=== PATIENT | male | born 1985 | race Two or more races ===

== ENCOUNTER 2016-07-18 22:22 | Emergency (ER) | payer MEDICARE, MEDICAID ==
[~2016-07-18] VITALS: Ht 165.1 cm; Wt 81.6 kg
--- NOTE | 2016-07-18 22:55 | NUR ---
TO BED 2 BIB PARAMEDICS C/O L FOREARM INTENTIONAL SUPERFICIAL LACERATION. PT DENIES SI OR HI. PT STATES "I JUST WANTED TO FEEL ALIVE". PT AAOX4 NO ACUTE DISTRESS NOTED, RESP EVEN AND UNLABORED. URINE SAMPLE COLLECTED AND SENT TO LAB. PT CALM AND COOPERATIVE AT THIS TIME.
--- NOTE | 2016-07-18 23:23 | NUR ---
BLOOD DRAWN BY PIE BAKER.
[2016-07-18 23:36] LABS: BASOPHILS % (AUTO) 0.5 % (0.0-2.0); EOSINOPHILS # (AUTO) 0.1 /CMM (0.0-0.7); EOSINOPHILS % (AUTO) 0.9 % (0.0-6.0); HEMATOCRIT 42 % (39-51); HEMOGLOBIN 14.4 g/dL (13.5-17.5); LYMPHOCYTES # (AUTO) 1.6 /CMM (0.8-4.8); LYMPHOCYTES % (AUTO) 21.4 % (20.0-44.0); MEAN CORPUSCULAR HEMOGLOBIN 30 PG (26.0-33.0); MEAN CORPUSCULAR HGB CONC 34 g/dl (31.0-36.0); MEAN CORPUSCULAR VOLUME 90 fL (80-96); MONOCYTES # (AUTO) 0.7 /CMM (0.1-1.30); MONOCYTES % (AUTO) 9.3 % (2.0-12.0); NEUTROPHILS # (AUTO) 5.2 /CMM (1.8-8.9); NEUTROPHILS % (AUTO) 67.9 % (43.0-81.0); PLATELET COUNT (AUTO) 271 /CMM (150-450); RDW COEFFICIENT OF VARIATION 13.2 (11.5-15.0); RED BLOOD CELL COUNT(AUTO) 4.72 MIL/uL (4.5-6.0); WHITE BLOOD COUNT (AUTO) 7.6 K/uL (4.3-11.0)
[2016-07-18 23:44] LABS: CALCIUM, SERUM 8.2 mg/dL (8.5-10.1); CARBON DIOXIDE 28 mmol/L (21-32); CHLORIDE 107 mmol/L (98-107); CREATININE 0.9 mg/dL (0.6-1.3); GFR 98 mL/min (>60); GLUCOSE 97 mg/dL (74-106); POTASSIUM 3.8 mmol/L (3.5-5.1); SODIUM SERUM 140 mmol/L (136-145); UREA NITROGEN, BLOOD 15 mg/dL (7-18)
[2016-07-18 23:49] LABS: ALANINE AMINOTRANSFERASE 28 U/L (12-78); ALBUMIN 3.6 g/dL (3.4-5.0); ALKALINE PHOSPHATASE 101 U/L (46-116); ASPARTATE AMINOTRANSFERASE 13 U/L (15-37); BILIRUBIN,DIRECT 0.1 mg/dL (0.0-0.2); BILIRUBIN,TOTAL 0.2 mg/dL (0.2-1.0)
[2016-07-18 23:51] LABS: ACETAMINOPHEN 0 ug/ml (10-30); ALCOHOL, BLOOD < 3 mg/dL (0-0); SALICYLATE 1.6 mg/dL (2.8-20.0)
--- NOTE | 2016-07-19 00:01 | NUR ---
PT AT BEDSIDE.
[2016-07-19 00:04] LABS: APPEARANCE,URINE CLEAR (CLEAR); BILIRUBIN,URINE NEGATIVE (NEGATIVE); BLOOD, URINE 2+ Ery/uL (NEGATIVE); COLOR,URINE YELLOW (YELLOW); KETONES,URINE NEGATIVE (NEGATIVE); LEUKOCYTE ESTERASE ,URINE NEGATIVE (NEGATIVE); NITRITE, URINE NEGATIVE (NEGATIVE); PH,URINE 6.5 (5.0-8.0); PROTEIN,URINE NEGATIVE (NEGATIVE); UGLUCOSE NEGATIVE (NEGATIVE); UROBILINOGEN,URINE 0.2 EU/dL (0.2)
[2016-07-19 00:05] LABS: CANNABINOID, URINE NEGATIVE (NEGATIVE); PHENCYCLIDINE SCREEN,URINE NEGATIVE (NEGATIVE)
[2016-07-19 00:26] LABS: ADD URINE CULTURE NO; BACTERIA,URINE None seen /HPF (None Seen); RBC,URINE 0-2 /HPF (0-2); SQUAMOUS EPITHELIAL CELL,UR Few /HPF (None Seen); WBC,URINE 0-2 /HPF (0-3)
--- NOTE | 2016-07-19 00:43 | NUR ---
MORA PERAZAW AT BEDSIDE TO CARITO LÓPEZ.
--- NOTE | 2016-07-19 01:03 | NUR ---
PT CLEARED FOR PSYCH PER ART MIGUEL PERAZAW.
--- NOTE | 2016-07-19 01:09 | NUR ---
Patient discharged to home in stable condition. Written and verbal after care instructions given. Patient verbalizes understanding of instruction. ambulatory with a steady gait. pt remains to deny hi or hi. pt at bedside to take pt home.
[2016-07-19 01:11] VITALS: BP 119/64
== END 2016-07-19 01:11 | disposition home or self-care (01) ==
LOC: ER 22:24
DX: F32.9 Major depressive disorder, single episode, unspecified (principal); F31.9 Bipolar disorder, unspecified; Z88.0 Allergy status to penicillin
CPT/HCPCS: 36415; 80048-TC; 80076-TC; 80305; 81000-TC; 85025-TC; A4606; A6402; G0480; G6039-TC; Z7610

== ENCOUNTER 2016-08-01 17:56 | Emergency (ER) | payer OTHER, MEDICAID ==
[~2016-08-01] VITALS: Ht 165.1 cm; Wt 79.4 kg
[2016-08-01] MEDS ORDERED: IV NS 0.9% 500 ML BAG IV ONE (18:30)
[2016-08-01] MEDS ORDERED: IV SET PRIMARY 1 EA INFUS.SET MC ONE (18:38)
[2016-08-01] MEDS ORDERED: IV NS 0.9% 500 ML IV ONE (18:38)
[2016-08-01 18:43] LABS: BASOPHILS % (AUTO) 0.5 % (0.0-2.0); DIFF TOTAL % 100 %; EOSINOPHILS # (AUTO) 0.1 /CMM (0.0-0.7); EOSINOPHILS % (AUTO) 1.2 % (0.0-6.0); HEMATOCRIT 46 % (39-51); HEMOGLOBIN 15.1 g/dL (13.5-17.5); LYMPHOCYTES % (AUTO) 26.4 % (20.0-44.0); MEAN CORPUSCULAR HEMOGLOBIN 30 PG (26.0-33.0); MEAN CORPUSCULAR HGB CONC 33 g/dl (31.0-36.0); MEAN CORPUSCULAR VOLUME 90 fL (80-96); MONOCYTES # (AUTO) 0.6 /CMM (0.1-1.30); MONOCYTES % (AUTO) 7.6 % (2.0-12.0); NEUTROPHILS # (AUTO) 4.9 /CMM (1.8-8.9); NEUTROPHILS % (AUTO) 64.3 % (43.0-81.0); PLATELET COUNT (AUTO) 251 /CMM (150-450); RED BLOOD CELL COUNT(AUTO) 5.07 MIL/uL (4.5-6.0); WHITE BLOOD COUNT (AUTO) 7.6 K/uL (4.3-11.0)
[2016-08-01 19:00] LABS: PROTHROMBIN TIME 10.5 SECS (9.5-12.7)
[2016-08-01 19:01] LABS: ANION GAP 10 (5-14); CALCIUM, SERUM 8.3 mg/dL (8.5-10.1); CARBON DIOXIDE 28 mmol/L (21-32); CHLORIDE 105 mmol/L (98-107); CREATININE 0.9 mg/dL (0.6-1.3); GFR 98 mL/min (>60); GLUCOSE 93 mg/dL (74-106); POTASSIUM 3.7 mmol/L (3.5-5.1); SODIUM SERUM 140 mmol/L (136-145); UREA NITROGEN, BLOOD 14 mg/dL (7-18)
[2016-08-01 19:09] LABS: TROPONIN I < 0.017 ng/mL (0.00-0.056)
[2016-08-01 22:33] VITALS: BP 132/84
== END 2016-08-01 22:48 | disposition home or self-care (01) ==
LOC: ER 18:01
DX: R07.9 Chest pain, unspecified (principal); R00.2 Palpitations; F32.9 Major depressive disorder, single episode, unspecified; E78.00 Pure hypercholesterolemia, unspecified; F31.9 Bipolar disorder, unspecified; Z88.0 Allergy status to penicillin
CPT/HCPCS: 36415; 71010; 80048; 84484 ×2; 85025; 85730; 93005 ×2; 99285; A4606; J7040; Z7610

== ENCOUNTER 2022-01-23 16:47 | Emergency (ER) | payer MEDICARE, OTHER ==
[~2022-01-23] VITALS: Ht 160 cm; Wt 116.6 kg
[2022-01-23 17:21] LABS: BASOPHILS # (AUTO) 0.1 K/uL (0.0-0.2); BASOPHILS % (AUTO) 0.7 % (0.0-2.0); EOSINOPHILS % (AUTO) 1.2 % (0.0-6.0); HEMATOCRIT 42 % (39-51); HEMOGLOBIN 14.1 g/dL (13.5-17.5); LYMPHOCYTES # (AUTO) 1.3 K/uL (0.8-4.8); LYMPHOCYTES % (AUTO) 17.4 % (20.0-44.0); MEAN CORPUSCULAR HGB CONC 33 g/dl (31.0-36.0); MEAN CORPUSCULAR VOLUME 86 fL (80-96); MONOCYTES # (AUTO) 0.6 K/uL (0.1-1.30); MONOCYTES % (AUTO) 7.3 % (2.0-12.0); NEUTROPHILS # (AUTO) 5.6 K/uL (1.8-8.9); NEUTROPHILS % (AUTO) 73.4 % (43.0-81.0); PLATELET COUNT (AUTO) 333 K/uL (150-450); RED BLOOD CELL COUNT(AUTO) 4.91 MIL/uL (4.5-6.0); WHITE BLOOD COUNT (AUTO) 7.7 K/uL (4.3-11.0)
[2022-01-23 17:47] LABS: ALANINE AMINOTRANSFERASE 31 U/L (12-78); ALBUMIN 3.5 g/dL (3.4-5.0); ALCOHOL, BLOOD < 3 mg/dL (0-0); ALKALINE PHOSPHATASE 110 U/L (46-116); ASPARTATE AMINOTRANSFERASE 15 U/L (15-37); BILIRUBIN,DIRECT 0.1 mg/dL (0.0-0.2); BILIRUBIN,TOTAL 0.3 mg/dL (0.2-1.0); CARBON DIOXIDE 26 mmol/L (21-32); CHLORIDE 103 mmol/L (98-107); CREATININE 0.9 mg/dL (0.6-1.3); GLUCOSE 112 mg/dL (74-106); POTASSIUM 3.7 mmol/L (3.5-5.1); SODIUM SERUM 138 mmol/L (136-145); TOTAL PROTEIN, SERUM 7.3 g/dL (6.4-8.2); UREA NITROGEN, BLOOD 12 mg/dL (7-18)
[2022-01-23 17:51] LABS: ACETAMINOPHEN < 2 ug/ml (10-30)
[2022-01-23 17:56] LABS: CALCIUM, SERUM 8.4 mg/dL (8.5-10.1)
[2022-01-23 18:24] LABS: BILIRUBIN,URINE NEGATIVE (NEGATIVE); COLOR,URINE YELLOW (YELLOW); LEUKOCYTE ESTERASE ,URINE NEGATIVE (NEGATIVE); NITRITE, URINE NEGATIVE (NEGATIVE); PROTEIN,URINE NEGATIVE (NEGATIVE); UGLUCOSE NEGATIVE (NEGATIVE); UROBILINOGEN,URINE 0.2 EU/dL (0.2)
--- NOTE | 2022-01-23 23:08 | NUR ---
CALLED BRYCE MORGAN TO EVALUATE THE PT
--- NOTE | 2022-01-24 02:29 | NUR ---
BRYCE NICHOLS AT BED SIDE FOR PSYCH EVAL
[2022-01-24] MEDS ORDERED: OLANZAPINE 5 MG TABLET ONE ×2 (02:59→03:05)
[2022-01-24] MEDS ORDERED: OLANZAPINE 5 MG TABLET PO ONE (03:00)
--- NOTE | 2022-01-24 03:07 | NUR ---
CLINICALS AND FACE SHEET WAS FAXED TO [facility] BY BRYCE NICHOLS
--- NOTE | 2022-01-24 04:19 | NUR ---
patient accepted at [facility] [address] [phone] [address]
--- NOTE | 2022-01-24 04:22 | NUR ---
[facility] ETA: 1 HOUR
--- NOTE | 2022-01-24 05:06 | NUR ---
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
--- NOTE | 2022-01-24 05:07 | NUR ---
REPORT GIVEN TO NINA BALDWIN
[2022-01-24 05:15] VITALS: BP 126/70
== END 2022-01-24 05:26 ==
LOC: ER 16:48
DX: R45.851 Suicidal ideations (principal); R45.88 Nonsuicidal self-harm; Z88.0 Allergy status to penicillin; F31.9 Bipolar disorder, unspecified; Z20.822 Contact with and (suspected) exposure to COVID-19; E78.00 Pure hypercholesterolemia, unspecified; S50.912A Unspecified superficial injury of left forearm, initial encounter; X83.8XXA Intentional self-harm by other specified means, initial encounter; Y92.099 Unspecified place in other non-institutional residence as the place of occurrence of the external cause
CPT/HCPCS: 99285; 85025; 80048; 80076; 81003; 36415; 87426; 80143; 80320; 80307; C9803; G0480